=== PATIENT | female | born 1990 | race Caucasian/White ===

== ENCOUNTER 2021-11-22 11:54 | Day surgery (SDC) | payer MEDICAID, OTHER ==
[2021-11-22 12:55] LABS: Fetal Membranes Rupture No Membranes Rupture (No Rupture)
[2021-11-22 13:30] VITALS: BMI 22.6
[2021-11-22] MEDS ORDERED: hydrALAZINE 20 MG/ML VIAL SLOW IVP PRN (13:31)
[2021-11-22] MEDS ORDERED: Butorphanol Tartrate 1 MG/ML VIAL SLOW IVP PRN (16:28)
[2021-11-22] MEDS ORDERED: diphenhydrAMINE 25 MG CAP PO SCH (17:00)
[2021-11-22] MEDS ORDERED: Morphine 4 MG/ML VIAL IM SCH (17:00)
[2021-11-22] MEDS ORDERED: Morphine 4 MG/ML VIAL SLOW IVP SCH (17:00)
== END 2021-11-22 18:36 | disposition home health service (06) ==
LOC: CSHLD/OP 11:54
PROVIDERS: ATTEND Student in an Organized Health Care Education/Training Program
DX: O47.1 False labor at or after 37 completed weeks of gestation (principal); O98.813 Other maternal infectious and parasitic diseases complicating pregnancy, third trimester; B37.3 Candidiasis of vulva and vagina; Z3A.38 38 weeks gestation of pregnancy; Z88.1 Allergy status to other antibiotic agents; Z91.040 Latex allergy status
CPT/HCPCS: 84112; 96372; 99283; J2270

== ENCOUNTER 2021-11-23 17:13 | Day surgery (SDC) | payer OTHER ==
[2021-11-23 18:04] VITALS: BMI 22.6
[2021-11-23] MEDS ORDERED: hydrALAZINE 20 MG/ML VIAL SLOW IVP PRN (20:17)
[2021-11-24 00:59] LABS: SARS-CoV-2 NAA Rapid Test Not Detected (NotDetected)
== END 2021-11-23 21:55 | disposition home or self-care (01) ==
LOC: CSHLD/OP 17:13
PROVIDERS: ATTEND Obstetrics & Gynecology
DX: O47.1 False labor at or after 37 completed weeks of gestation (principal); Z3A.39 39 weeks gestation of pregnancy; Z88.1 Allergy status to other antibiotic agents; Z91.040 Latex allergy status; Z20.822 Contact with and (suspected) exposure to COVID-19
CPT/HCPCS: U0002

== ENCOUNTER 2021-11-25 06:00 | Inpatient (IN) | payer OTHER ==
[2021-11-25] MEDS ORDERED: Bupivacaine/Epinephrine 0.25% 30 ML VIAL ONE (07:00)
[2021-11-25] MEDS ORDERED: HYDROcodone/Acetaminophen 5/325 mg Tablet PO PRN (15:36)
[2021-11-25] MEDS ORDERED: Ondansetron PF 4 MG/2 ML Vial IVP PRN (15:36)
[2021-11-25] MEDS ORDERED: Ibuprofen 800 MG TAB PO PRN (15:36)
[2021-11-25] MEDS ORDERED: hydrALAZINE 20 MG/ML VIAL SLOW IVP PRN (15:36)
[2021-11-25] MEDS ORDERED: Lidocaine 1% (PF) 30 ML VIAL SC PRN (15:36)
[2021-11-25] MEDS ORDERED: Promethazine HCl 25 MG/ML VIAL IM PRN (15:36)
[2021-11-25] MEDS ORDERED: Lactated Ringer's 1,000 ML IV SCH (15:45)
[2021-11-25] MEDS ORDERED: NS w/ Oxytocin 30 units 500 ML IV SCH ×2 (15:45)
[2021-11-25 15:59] VITALS: BMI 22.6
[2021-11-25 16:28] LABS: Hemoglobin 9.6 g/dL (12.0-15.5); Mean Corpuscular HGB CONC 31.6 g/dL (32.0-36.0); Mean Corpuscular Hemoglobin 27.8 pg (27.0-33.0); Mean Corpuscular Volume 88.1 fl (81.6-98.3); Platelet Count 172 10x3/uL (150-450); RBC Distribution Width 14.2 % (11.5-14.5); Red Blood Cell (RBC) Count 3.45 10x6/uL (3.90-5.03); White Blood Cell (WBC) Count 7.8 10x3/uL (3.5-10.5)
[2021-11-25] MEDS: Lactated Ringer's 1,000 ML IV SCH (16:30)
[2021-11-25 17:05] LABS: Syphilis Antibody Nonreactive (Nonreactive); Syphilis Antibody Index 0.04 S/CO (<1.00 Non-Reactive)
[2021-11-25 17:06] LABS: Hep B Surf Ag Non-Reactive S/CO (NonReactive)
[2021-11-25 17:09] LABS: HBSAg Index 0.25 S/CO (0-0.99)
[2021-11-26] MEDS ORDERED: Butorphanol Tartrate 1 MG/ML VIAL SLOW IVP PRN (01:49)
[2021-11-26] MEDS ORDERED: Butorphanol Tartrate 1 MG/ML VIAL ONE (01:49)
[2021-11-26] MEDS ORDERED: Fentanyl 2 mcg/Bup 0.1% Cadd 100 ML ONE (03:34)
[2021-11-26] MEDS ORDERED: ePHEDrine Sulfate 50 MG/10 ML VIAL SLOW IVP PRN (04:38)
[2021-11-26] MEDS ORDERED: Acetaminophen 325 MG TAB PO PRN (04:38)
[2021-11-26] MEDS ORDERED: Promethazine HCl 25 MG/ML VIAL IM PRN (04:38)
[2021-11-26] MEDS ORDERED: Ondansetron PF 4 MG/2 ML Vial IVP PRN ×2 (04:38→13:05)
[2021-11-26] MEDS ORDERED: Hydrocerin (Eucerin) Cream 120 gm Jar TOP PRN (04:38)
[2021-11-26] MEDS ORDERED: Lactated Ringer's 500 ML IV PRN (04:38)
[2021-11-26] MEDS ORDERED: diphenhydrAMINE 50 MG/ML VIAL IVP PRN (04:38)
[2021-11-26] MEDS ORDERED: Naloxone HCl 0.4 mg/ml Vial IVP PRN ×2 (04:38)
[2021-11-26] MEDS ORDERED: Communication Order-Pharmacy FS SCH (04:45)
[2021-11-26] MEDS ORDERED: Fentanyl 2 mcg/Bupivacaine 0.1% Cassette 100 ML EPIDURAL SCH (04:45)
[2021-11-26] MEDS ORDERED: Boostrix 0.5 ML (Tdap) VIAL IM ONE (13:05)
[2021-11-26] MEDS ORDERED: Misoprostol 200 MCG TAB VAG PRN (13:05)
[2021-11-26] MEDS ORDERED: Bisacodyl 10 MG SUPP PR PRN (13:05)
[2021-11-26] MEDS ORDERED: hydrALAZINE 20 MG/ML VIAL SLOW IVP PRN (13:05)
[2021-11-26] MEDS ORDERED: NS w/ Oxytocin 30 units 500 ML IV SCH (13:05)
[2021-11-26] MEDS ORDERED: HYDROcodone/Acetaminophen 5/325 mg Tablet PO PRN (13:05)
[2021-11-26] MEDS ORDERED: Methylergonovine 0.2 MG/ML VIAL IM PRN (13:05)
[2021-11-26] MEDS ORDERED: Milk Of Magnesia 30 ML UDCUP PO PRN (13:05)
[2021-11-26] MEDS: Ibuprofen 800 MG TAB PO SCH ×2 (15:15→21:42)
[2021-11-26] MEDS: HYDROcodone/Acetaminophen 5/325 mg Tablet PO PRN ×3 (15:19→23:50)
[2021-11-26] MEDS ORDERED: Witch Hazel-Glycerin 1 EACH JAR TOP PRN (15:33)
[2021-11-26] MEDS: Ferrous Sulfate 325 MG TAB PO SCH (17:22)
[2021-11-26] MEDS: Lactated Ringer's 1,000 ML IV SCH (20:43)
[2021-11-26] MEDS: Docusate 100 MG CAP PO SCH (21:42)
[2021-11-27 04:56] LABS: Hemoglobin 9.7 g/dL (12.0-15.5); Mean Corpuscular HGB CONC 31.9 g/dL (32.0-36.0); Mean Corpuscular Hemoglobin 27.8 pg (27.0-33.0); Mean Corpuscular Volume 87.1 fl (81.6-98.3); Mean Platelet Volume 11.8 fl (7.4-10.4); Platelet Count 187 10x3/uL (150-450); RBC Distribution Width 14.2 % (11.5-14.5); Red Blood Cell (RBC) Count 3.49 10x6/uL (3.90-5.03); White Blood Cell (WBC) Count 10.6 10x3/uL (3.5-10.5)
[2021-11-27] MEDS: Ibuprofen 800 MG TAB PO SCH ×3 (05:12→21:32)
[2021-11-27] MEDS: HYDROcodone/Acetaminophen 5/325 mg Tablet PO PRN ×3 (05:12→21:33)
[2021-11-27] MEDS: Docusate 100 MG CAP PO SCH ×2 (08:48→21:32)
[2021-11-27] MEDS: Ferrous Sulfate 325 MG TAB PO SCH ×2 (08:48→18:11)
[2021-11-27] MEDS ORDERED: Hydrocortisone Acetate 25 MG Suppository PR PRN (12:46)
[2021-11-28] MEDS: Ibuprofen 800 MG TAB PO SCH (05:12)
[2021-11-28] MEDS: Docusate 100 MG CAP PO SCH (08:39)
[2021-11-28] MEDS: Ferrous Sulfate 325 MG TAB PO SCH (08:39)
[2021-11-28] MEDS: HYDROcodone/Acetaminophen 5/325 mg Tablet PO PRN (08:41)
[2021-11-28 08:45] VITALS: BP 110/59; TEMP 98.1
== END 2021-11-28 11:40 | disposition home or self-care (01) | DRG 807 ==
LOC: CSHLD 14:13 → CSHPP 11-26 13:02
PROVIDERS: ADMIT Obstetrics & Gynecology; ATTEND Obstetrics & Gynecology
PROC: 10907ZC Drainage of Amniotic Fluid, Therapeutic from Products of Conception, Via Natural or Artificial Opening (ICD-10-PCS; 2021-11-25)
PROC: 10E0XZZ Delivery of Products of Conception, External Approach (ICD-10-PCS; principal; 2021-11-26)
PROC: 3E0234Z Introduction of Serum, Toxoid and Vaccine into Muscle, Percutaneous Approach (ICD-10-PCS; 2021-11-26)
DX: O26.893 Other specified pregnancy related conditions, third trimester (principal); Z37.0 Single live birth; Z3A.39 39 weeks gestation of pregnancy; Z67.11 Type A blood, Rh negative; O76 Abnormality in fetal heart rate and rhythm complicating labor and delivery; O99.02 Anemia complicating childbirth; D64.9 Anemia, unspecified; O99.344 Other mental disorders complicating childbirth; F32.A Depression, unspecified; F41.9 Anxiety disorder, unspecified; F43.10 Post-traumatic stress disorder, unspecified; O87.2 Hemorrhoids in the puerperium; Z88.1 Allergy status to other antibiotic agents; Z91.040 Latex allergy status
CPT/HCPCS: 36415; 51702; 85027; 85461; 86780; 86850; 86870; 86900; 86901; 87340; 90384; 96372; J0595; J2405; J2590; J7120